=== PATIENT | male | born 1955 | race Asian ===

== ENCOUNTER 2023-11-07 13:30 | Outpatient (RCR) | payer MEDICAID, SELFPAY | END 2024-03-06 23:59 | disposition home or self-care (01) | PROVIDERS: PCP Family Medicine; Visit Provider Physician Assistant Medical | DX: M40.209 Unspecified kyphosis, site unspecified (principal); M62.81 Muscle weakness (generalized); R29.3 Abnormal posture; Z51.89 Encounter for other specified aftercare | CPT/HCPCS: 97110; 97112; 97140; 97162 ==

== ENCOUNTER 2024-04-21 11:02 | Emergency (ER) | payer MEDICAID, SELFPAY ==
[2024-04-21 11:12] VITALS: BP 146/89; PULSE 62; RESP 20; TEMP 36.8; BMI 25.2
--- NOTE | 2024-04-21 11:39 | CRLHL7_ITS ---
For Patients: As a result of the Century Cures Act, medical imaging exams and procedure reports are released immediately into your electronic medical record. You may view this report before your referring provider. If you have questions, please contact your health care provider. INDICATION: Right flank pain. TECHNIQUE: CT abdomen and pelvis without contrast. COMPARISON: None. FINDINGS: Lower chest: Scattered atelectasis. Tiny hiatal hernia. Liver: Normal in size and attenuation. No suspicious masses. Gallbladder and bile ducts: No stones or inflammation. No biliary dilatation. Pancreas: Unremarkable. No mass or inflammation. Spleen: Normal in size. No masses. Adrenal glands: Normal in size. No nodules. Kidneys: Normal in size. No suspicious masses, stones, or hydronephrosis. GI tract: Moderate colonic stool burden. Normal in caliber. No sign of mass or inflammation. Normal appendix. Vasculature: Aortoiliac arterial calcifications. Abdominal aorta is normal in caliber. Lymph nodes: No lymphadenopathy. Peritoneum/Abdominal Wall: Unremarkable. No sign of mass or infiltration. No free air or significant free fluid. Pelvis: Prostatomegaly. No pelvic masses. Bones: Age indeterminate L1, L2, L4 compression fractures. Recommend correlation with point tenderness. IMPRESSION: Age-indeterminate L1, L2, and L4 compression fractures. Recommend correlation with point tenderness. Moderate colonic stool burden. Otherwise, no acute intra-abdominal/pelvic abnormality including obstructive uropathy as questioned. Please note that all CT scans at this facility use dose modulation, iterative reconstruction, and/or weight-based dosing when appropriate to reduce radiation dose to as low as reasonably achievable. Dictated by Cortes Eagle MD @ 04/21/2024 12:30:39 PM (Electronically Signed)
--- NOTE | 2024-04-21 11:40 | ED.GENADULT ---
HPI - General Adult General Chief complaint: Urogenital Problems, Male Stated complaint: pain in pelvis Time Seen by Provider: 04/21/24 11:28 History of Present Illness HPI narrative: This 68-year-old male comes in with his daughter. He does not speak Spanish and his daughter refuses conference interpreter as she states that she can translate. He is reporting right flank pain over the past couple days. It has become constant and more severe today. He has difficulty ambulating because the pain in his right flank is so severe. He states that the pain is not radiating down his leg. He does have a history of kidney stone. There is no report of fever, nausea, vomiting, or dysuria. He arrives here with normal vital signs. Related Data Home Medications ?Medication ?Instructions ?Recorded ?Confirmed [place] medicine PO 09/08/23 aspirin 81 mg chewable tablet 81 mg PO DAILY 09/08/23 04/21/24 Previous Rx's ?Medication ?Instructions ?Recorded ketorolac 10 mg tablet 10 mg PO Q8H 5 days #15 tabs 04/21/24 Allergies Allergy/AdvReac Type Severity Reaction Status Date / Time No Known Drug Allergies Allergy Verified 04/21/24 12:30 Review of Systems Status of ROS: Reports: 10 or more systems reviewed and unremarkable except as noted in History and below Narrative: Unable to obtain due to language barrier. [facility] Medical History (Updated 04/21/24 @ 12:47 by Dominic Dunne MD) Hemiparesis affecting left side as late effect of stroke (2012) ?I69.354 - Hemiplegia and hemiparesis following cerebral infarction affecting left non-dominant side (ICD-10) Social History Smoking Status: Never smoker Do you use any of these nicotine containing products: None Second hand tobacco smoke exposure: No How often do you have a drink containing alcohol: never AUDIT-C Alcohol total score: 0 Non-prescribed substance use: denies use Exam Narrative: Exam Narrative: Constitutional: Well-developed, well-nourished, no acute distress. HEENT: Normocephalic, atraumatic. Neck: Normal range of motion. Nontender. Supple. Heart: Regular. No murmurs. Normal rate. Intact distal pulses. Lungs: Clear to auscultation. No chest discomfort. No wheezes, rhonchi, or rales. Abdomen: Normal bowel sounds. Nontender. No rebound tenderness. Genitalia: Deferred. Back: No midline tenderness. Normal range of motion. Extremities: Normal range of motion. No injury. Skin: Intact. No rash. Warm. No erythema or pallor. Neurologic: No altered sensation. No weakness. Alert and oriented. Passive straight leg raise is negative. Psychiatric: No suicidality. No anxiety or depression. No insomnia. Nursing notes and vitals signs are reviewed. Const: Vital Signs, click to edit/add: Vital Signs - 24 hr 04/21/24 11:12 Temperature 98.2 F Pulse Rate [Right Radial] 62 Respiratory Rate 20 Blood Pressure [Ri ght Upper Arm] 146/89 H Oxygen Delivery Me thod Room Air Course Vital Signs Vital signs: Initial Vital Signs Temperature 98.2 F 04/21/24 11:12 Temperature Source Temporal Artery Scan 04/21/24 11:12 Pulse Rate 62 04/21/24 11:12 Pulse Rhythm Regular 04/21/24 11:12 Respiratory Rate 20 04/21/24 11:12 Blood Pressure 146/89 H 04/21/24 11:12 Blood Pressure Mean 108 H 04/21/24 11:12 Oxygen Delivery Method Room Air 04/21/24 11:12 Vital Signs Temperature 98.2 F 04/21/24 11:12 Pulse Rate 62 04/21/24 11:12 Respiratory Rate 20 04/21/24 11:12 Blood Pressure 146/89 H 04/21/24 11:12 Oxygen Delivery Method Room Air 04/21/24 11:12 Temperature 98.2 F 04/21/24 11:12 Pulse Rate 62 04/21/24 11:12 Respiratory Rate 20 04/21/24 11:12 Blood Pressure 146/89 H 04/21/24 11:12 Oxygen Delivery Method Room Air 04/21/24 11:12 Medical Decision Making MDM Narrative Medical decision making narrative: This patient comes in with back pain as described above. He has minimal pain if he remains still but has pain with weight-bearing and with activity. He does not report any specific injury event. He does have a history of kidney stones long ago. I did acquire is CT scan of his abdomen and pelvis without contrast. I also discussed other lab and imaging options with the patient and his daughter but these were declined. CT imaging does show evidence of age indeterminate compression fractures of his lumbar spine. This likely does explain the patient's pain. There are no other findings on CT scan that are notable. The patient is agreeable to receive a prescription for Toradol. He can also use Tylenol of course as needed and directed. I recommended following up with a spine clinic as needed. Imaging Data CT scan - abdomen: Radiologist's impression: Age-indeterminate L1, L2, and L4 compression fractures. Recommend correlation with point tenderness. Moderate colonic stool burden. Otherwise, no acute intra-abdominal/pelvic abnormality including obstructive uropathy as questioned. Discharge Plan Discharge Clinical Impression: Compression fracture of lumbar vertebra Patient Disposition: Home w/ Parent or Adult Condition: Stable Additional Instructions: Take medication as needed and indicated. Follow-up with spine clinic. Call for appointment by dialing [phone]. Prescriptions: New ketorolac 10 mg tablet 10 mg PO Q8H 5 Days Qty: 15 0RF No Action aspirin 81 mg tablet,chewable 81 mg PO DAILY [place] medicine PO Follow Up/Referrals: Melissa Joyce MD [Primary Care Provider] - Stand Alone Forms: [employer] Info Instructions
[2024-04-21 13:03] VITALS: RESP 20
== END 2024-04-21 13:00 | disposition home or self-care (01) ==
PROVIDERS: Emergency Provider Emergency Medicine Emergency Medical Services; PCP Family Medicine
DX: S32.040A Wedge compression fracture of fourth lumbar vertebra, initial encounter for closed fracture (principal); S32.010A Wedge compression fracture of first lumbar vertebra, initial encounter for closed fracture; S32.020A Wedge compression fracture of second lumbar vertebra, initial encounter for closed fracture
CPT/HCPCS: 74176; 99283; 99284